=== PATIENT | female | born 1955 | race Caucasian/White ===

== ENCOUNTER 2021-01-28 10:55 | Day surgery (SDC) | payer MEDICARE, BC ==
[2021-01-24 11:00] VITALS: BMI 27.8
--- NOTE | 2021-01-26 11:18 | P.GSHP ---
History of Present Illness H&P Date: 01/26/21 65 yo female with a symptomatic 8 mm rt upj stone She wishes treatment Treatment options were discussed. She comes for eswl right - Constitutional Constitutional: Denies chills, Denies fever - EENT Eyes: denies blurred vision, denies pain Ears, nose, mouth and throat: Denies headache, Denies sore throat - Cardiovascular Cardiovascular: Denies chest pain, Denies shortness of breath - Respiratory Respiratory: Denies cough, Denies 7 - Gastrointestinal Gastrointestinal: Denies abdominal pain, Denies diarrhea, Denies nausea, Denies vomiting - Genitourinary (Female) Genitourinary: Denies dysuria, Denies hematuria - Genitourinary (Male) Genitourinary: Denies dysuria, Denies hematuria - Musculoskeletal Musculoskeletal: Denies myalgias - Integumentary Integumentary: Denies pruritus, Denies rash - Neurological Neurological: Denies numbness, Denies weakness - Psychiatric Psychiatric: Denies anxiety, Denies depression - Endocrine Endocrine: Denies fatigue, Denies weight change Past Medical History Past Medical History: Asthma, GERD/Reflux, Hypertension, Osteoarthritis (OA), Rheumatoid Arthritis (RA), Thyroid Disorder Additional Past Medical History / Comment(s): hx migraines, hiatal hernia, juvenile RA, kidney stones History of Any Multi-Drug Resistant Organisms: None Reported Past Surgical History: Cholecystectomy, Joint Replacement, Tonsillectomy Additional Past Surgical History / Comment(s): Slenectomy, left hip replacement, sinus balloon surgery, lithotripsy Past Anesthesia/Blood Transfusion Reactions: No Reported Reaction Smoking Status: Never smoker - Past Family History Mother Family Medical History: No Reported History Medications and Allergies Home Medications Medication Instructions Recorded Confirmed Type ALPRAZolam [Xanax] 0.25 mg PO DAILY PRN 01/24/21 01/24/21 History Albuterol Inhaler [Ventolin Hfa 1 puff INHALATION RT-QID PRN 01/24/21 01/24/21 History Inhaler] Beclomethasone Dip 80 Mcg/Puff 1 puff INHALATION QAM 01/24/21 01/24/21 History [Qvar 80 mcg] Benzonatate [Tessalon Perles] 100 mg PO TID PRN 01/24/21 01/24/21 History Cetirizine HCl [Zyrtec] 10 mg PO DAILY 01/24/21 01/24/21 History Cyanocobalamin (Vitamin B-12) 1,000 mcg PO DAILY 01/24/21 01/24/21 History [Vitamin B-12] Hydrochlorothiazide 12.5 mg PO DAILY 01/24/21 01/24/21 History [hydroCHLOROthiazide] Levothyroxine Sodium [Synthroid] 25 mcg PO DAILY 01/24/21 01/24/21 History Losartan [Cozaar] 50 mg PO DAILY 01/24/21 01/24/21 History Omeprazole [PriLOSEC] 20 mg PO 1200 01/24/21 01/24/21 History Oxybutynin ER [Ditropan Xl] 10 mg PO DAILY 01/24/21 01/24/21 History Slow-Magnesium 1 tab PO DAILY 01/24/21 01/24/21 History Vitamin D Drops 1 applicate PO DIRECTED 01/24/21 01/24/21 History traMADol HCl [Ultram] 100 mg PO Q6HR PRN 01/24/21 01/24/21 History Allergies Allergy/AdvReac Type Severity Reaction Status Date / Time codeine Allergy Nausea Verified 01/24/21 10:46 Sulfa (Sulfonamide Allergy Nausea Verified 01/24/21 10:46 Antibiotics) Surgical - Exam - General well developed, well nourished - Eyes PERRL - ENT no hearing loss - Neck trachea midline - Respiratory normal expansion, normal respiratory effort - Cardiovascular Rhythm: regular - Abdomen Abdomen: soft, non tender - Neurologic normal coordination, normal sensation - Musculoskeletal normal gait, normal posture - Psychiatric oriented to time, oriented to person, oriented to place, speech is normal, memory intact Results - Imaging Abdominal x-ray: report reviewed, image reviewed Assessment and Plan Assessment: Impression: right ureteral stone Plan: eswl right
[~2021-01-28 10:55] MED LIST: KETAMINE 10 MG/ML 20 ML VIAL ONE; LACTATED RINGERS 1,000 ML IV SCH; LIDOCAINE 1% INJ 10MG/ML (20 ML MDV) ONE; MIDAZOLAM 2 MG/2 ML VIAL ONE; PROPOFOL 10 MG/ML 20 ML VIAL IV ONE; fentaNYL (PF) 50 MCG/ML 2 ML AMP ONE
--- NOTE | 2021-01-28 11:15 | XR ---
EXAMINATION TYPE: XR KUB DATE OF EXAM: 01/28/2021 11:09 AM CLINICAL HISTORY: Presurgical study. Right-sided kidney stones. TECHNIQUE: Two supine KUB images of the abdomen are obtained. COMPARISON: None. FINDINGS: There are 2 adjacent 4 mm calculi right L3 transverse process level likely in proximal uret er. Some vascular calcification in the pelvis. No definitive left-sided nephrolithiasis. Cholecystectomy clips. Surgical changes of left hip. Advanced degenerative change right hip with supe rior [id number] formation. Overall nonobstructive bowel gas pattern. IMPRESSION: As above.
[2021-01-28 11:34] VITALS: RESP 16; TEMP 97.4
--- NOTE | 2021-01-28 12:22 | P.OP ---
Date of Procedure: 01/28/21 Preoperative Diagnosis: Right UPJ Calculus Postoperative Diagnosis: Same Procedure(s) Performed: Right extracorporal shockwave lithotripsy (ESWL) Anesthesia: MAC Surgeon: Lopez Eugene Estimated Blood Loss (ml): 0 IV fluids (ml): 700 Pathology: none sent Condition: stable Disposition: PACU Indications for Procedure: The patient is a 65-year-old white female with an 8 mm right UPJ calculus. She is symptomatic and comes for ESWL. Operative Findings: Excellent fragmentation. Description of Procedure: The patient was taken to the operating room and placed on the Dornier Compact Delta II lithotripter in the supine position. The calculus was seen on biplanar fluoroscopy. Lasix 10 mg was given intravenously. Once the patient was properly positioned and sedated, lithotripsy was performed. The energy level was gradually increased per protocol, to an energy level of 5. After 100 shocks were administered, a 2 minute pause was instituted per protocol. A total of 2000 shocks were given at a rate of 80 shocks per minute. Fluoroscopy was utilized at a minimum to ensure proper positioning and determine the treatment status. The procedure was terminated as the calculus was no longer visible. The patient tolerated the procedure well was taken to the recovery room in stable condition. Instructions were given to strain the urine, and the patient will follow-up within one week.
[2021-01-28 12:46] VITALS: BP 158/89; PULSE 86
== END 2021-01-28 13:00 | disposition home or self-care (01) ==
LOC: ORWHC2ENDO 10:55
PROVIDERS: ATTEND Urology
DX: N20.0 Calculus of kidney (principal); J45.909 Unspecified asthma, uncomplicated; I10 Essential (primary) hypertension; E78.5 Hyperlipidemia, unspecified; K21.9 Gastro-esophageal reflux disease without esophagitis; M19.90 Unspecified osteoarthritis, unspecified site; M06.9 Rheumatoid arthritis, unspecified; E07.9 Disorder of thyroid, unspecified; K44.9 Diaphragmatic hernia without obstruction or gangrene; Z90.49 Acquired absence of other specified parts of digestive tract; Z90.89 Acquired absence of other organs; Z96.642 Presence of left artificial hip joint; Z98.890 Other specified postprocedural states; Z79.890 Hormone replacement therapy; Z79.891 Long term (current) use of opiate analgesic; Z79.899 Other long term (current) drug therapy; Z88.5 Allergy status to narcotic agent; Z88.2 Allergy status to sulfonamides
CPT/HCPCS: 74018; 50590; J2250; J2001; J3010; J2704

== ENCOUNTER 2022-03-26 10:07 | Day surgery (SDC) | payer MEDICARE, BC, OTHER ==
[2022-03-24 15:25] VITALS: BMI 26.5
[~2022-03-26 10:07] MED LIST changes: -KETAMINE 10 MG/ML 20 ML VIAL ONE; +LIDOCAINE 1% (10MG/ML) FOR IV START INTRADERMA PRN; -LIDOCAINE 1% INJ 10MG/ML (20 ML MDV) ONE; -MIDAZOLAM 2 MG/2 ML VIAL ONE; -PROPOFOL 10 MG/ML 20 ML VIAL IV ONE; +TETRACAINE 0.5% OPHTH (PF) DROPS 4 ML BTL OP PRN; -fentaNYL (PF) 50 MCG/ML 2 ML AMP ONE
[2022-03-26 10:32] VITALS: TEMP 98.6
[2022-03-26] MEDS: CYCLOPENTOLATE 1% OPHTH SOLN 2 ML BTL OP PRN ×3 (10:38→10:50)
[2022-03-26] MEDS: PHENYLEPHRINE 2.5% OPHTH DRP 2ML OP PRN ×3 (10:41→10:53)
[2022-03-26 10:53] LABS: Glucose,Whole Blood 104 mg/dL (75-99)
[2022-03-26] MEDS: MOXIFLOXACIN HCL 0.5% DROPS 3 ML BTL OP PRN ×3 (10:56→14:14)
[2022-03-26] MEDS ORDERED: LIDOCAINE 1% (PF) 10MG/ML VIAL MISCELLANE ONE ×2 (10:57→11:31)
[2022-03-26] MEDS: TIMOLOL 0.5% OPHTH DROPS 5 ML BTL OP PRN ×3 (10:57→14:14)
[2022-03-26] MEDS ORDERED: BALANCED SALT IRRIG SOLN COMB2 15 ML IRRIG.SOLN INTRAOCULA ONE ×3 (10:57→14:14)
[2022-03-26] MEDS ORDERED: HYALURONATE SODIUM INTRAOCULAR 1 EACH SYRINGE (12MG/ML) INTRAOCULA ONE ×2 (10:57→11:31)
[2022-03-26] MEDS ORDERED: EPINEPHrine (PF) 0.3 ML in BALANCED SALT IRRIG SOLN COMB2 500 ML IRRIGATION ONE ×2 (10:58→14:13)
[2022-03-26] MEDS ORDERED: MIDAZOLAM 2 MG/2 ML VIAL ONE ×2 (11:27→13:55)
[2022-03-26] MEDS ORDERED: fentaNYL (PF) 50 MCG/ML 2 ML AMP ONE ×2 (11:27→13:55)
[2022-03-26] MEDS ORDERED: LACTATED RINGERS 1,000 ML IV ONE ×3 (11:30→14:13)
--- NOTE | 2022-03-26 12:19 | P.OP ---
Date of Procedure: 03/26/22 Preoperative Diagnosis: NS & CS Postoperative Diagnosis: same Procedure(s) Performed: PIOL< OD Implants: [id number] 24.00 Anesthesia: MAC Surgeon: Reji Bain Pathology: none sent Condition: stable Disposition: same day Indications for Procedure: blurry vision Operative Findings: IOL broken will need to replace.
[2022-03-26 12:46] VITALS: RESP 16
[2022-03-26] MEDS ORDERED: DUOVISC KIT (GREEN BOX) INTRAOCULA ONE (14:14)
[2022-03-26] MEDS ORDERED: LIDOCAINE 1% (PF) 10MG/ML VIAL INTRAARTIC ONE (14:15)
--- NOTE | 2022-03-26 14:43 | P.OP ---
Date of Procedure: 03/26/22 Preoperative Diagnosis: broken IOL Postoperative Diagnosis: same Procedure(s) Performed: IOL exchange OD Implants: [id number] 24.00 Anesthesia: MAC Surgeon: Reji Bain Pathology: none sent Condition: stable Disposition: same day Indications for Procedure: IOL damage Operative Findings: no complications
[2022-03-26 15:16] VITALS: BP 145/83; PULSE 72
--- NOTE | 2022-03-27 11:01 | OP ---
OPERATIVE REPORT DATE OF PROCEDURE: March 26, 2022. PROCEDURE: Phacoemulsification of cataract and intraocular lens implant of the right eye. PREOPERATIVE DIAGNOSIS: Nuclear sclerosis, cortical sclerosis. Regular astigmatism. POSTOPERATIVE DIAGNOSIS: Nuclear sclerosis, cortical sclerosis. Regular astigmatism. SURGEON: Dr. Reji Bain. ANESTHESIA: Topical. ESTIMATED BLOOD LOSS: None. SPECIMEN TAKEN: None. NARRATIVE: After obtaining the appropriate consent, the patient was brought to the operating room. There she was asked to sit upright and the axes of 0 and 180 degrees were identified and marked with a gentian hallie marker. She was then laid in the proper supine position under cardiac monitoring, then prepped and draped in the usual sterile manner. She was approached from her right temporal side. Using previously acquired corneal topography information, the axis of 166 degrees was identified and marked with a Allostatix axis marker. At the 11 o'clock position, an MVR blade was used to create a paracentesis port. Through this opening, 1% Xylocaine MPF 50:50 mix with balanced salt solution was injected into the anterior chamber. This was followed by stabilization of the anterior chamber with Amvisc. At the 9 o'clock position, a 2.5 mm keratome was used to create a self-sealing corneal flap incision. Through this opening, a cystotome was introduced to begin a continuous tear capsulorrhexis which was then completed using the Utrata forceps. Hydrodissection and hydrodelineation of the lens was accomplished with balanced salt solution. Phacoemulsification of the lens utilizing phaco chop was accomplished in 16.14 seconds at 18% power. Additional Xylocaine MPF was instilled into the anterior chamber. This was followed by removal of the remaining cortex under irrigation and aspiration as well as careful polishing of the posterior capsule in capsule vacuum mode. Additional Amvisc was instilled into the capsular bag and an [employer] model TFAT40, 24.0 diopter posterior chamber intraocular lens was then inserted into the capsular bag without difficulty. It was appreciated at this point in time while trying to reposition and align the lens with its proper astigmatism correction that the optic of the lens had been fractured in several places. Therefore, using a Sooqini lens removal system, the lens was divided and removed from the anterior chamber. A backup lens model TFNT40 24.0 diopter posterior chamber intraocular lens was then inserted after restabilizing the capsular bag with additional Amvisc. The lens was placed in the capsular bag without difficulty and the remaining viscoelastic was removed from in and around the intraocular lens along with careful realignment of the lens to the 166 degree axis. The eye was brought to normal intraocular pressure through the paracentesis port and due to instability of the temporal incision, ReSure was used to help secure the incision and create a watertight closure. Once this was accomplished, the patient then received 2 drops of 0.5% timolol followed by 2 drops of 0.5% moxifloxacin, was then lightly patched and shielded in the usual manner. There were no additional difficulties encountered during the procedure. She tolerated the procedure well and was returned to outpatient recovery in good condition. MMODL / IJN: [id number] /
== END 2022-03-26 15:45 | disposition home or self-care (01) ==
LOC: OR 10:07
PROVIDERS: ATTEND Ophthalmology
DX: H25.11 Age-related nuclear cataract, right eye (principal); H52.221 Regular astigmatism, right eye; I10 Essential (primary) hypertension; J45.909 Unspecified asthma, uncomplicated; F41.9 Anxiety disorder, unspecified; F32.A Depression, unspecified; M06.9 Rheumatoid arthritis, unspecified; M19.90 Unspecified osteoarthritis, unspecified site; E03.9 Hypothyroidism, unspecified; Z79.890 Hormone replacement therapy; Z79.899 Other long term (current) drug therapy; Z88.5 Allergy status to narcotic agent; Z88.2 Allergy status to sulfonamides; Z90.89 Acquired absence of other organs; Z90.49 Acquired absence of other specified parts of digestive tract; Z90.81 Acquired absence of spleen; Z98.890 Other specified postprocedural states; Z87.442 Personal history of urinary calculi
CPT/HCPCS: 66984; J2250; J0171 ×2; J3010; J2001

== ENCOUNTER 2022-06-11 09:24 | Day surgery (SDC) | payer MEDICARE, BC, OTHER ==
[2022-06-10 08:41] VITALS: BMI 26.5
[2022-06-11] MEDS: CYCLOPENTOLATE 1% OPHTH SOLN 2 ML BTL OP PRN ×3 (10:50→11:02)
[2022-06-11] MEDS: PHENYLEPHRINE 2.5% OPHTH DRP 2ML OP PRN ×3 (10:53→11:05)
[2022-06-11 10:56] VITALS: TEMP 97.5
[2022-06-11] MEDS ORDERED: MIDAZOLAM 2 MG/2 ML VIAL ONE (11:54)
[2022-06-11] MEDS ORDERED: fentaNYL (PF) 50 MCG/ML 2 ML AMP ONE (11:54)
[2022-06-11] MEDS ORDERED: LIDOCAINE 1% (PF) 10MG/ML VIAL MISCELLANE ONE ×2 (12:01→12:08)
[2022-06-11] MEDS ORDERED: HYALURONATE SODIUM INTRAOCULAR 1 EACH SYRINGE (12MG/ML) INTRAOCULA ONE ×2 (12:01→12:08)
[2022-06-11] MEDS ORDERED: BALANCED SALT IRRIG SOLN COMB2 15 ML IRRIG.SOLN INTRAOCULA ONE ×2 (12:01→12:08)
[2022-06-11] MEDS: MOXIFLOXACIN HCL 0.5% DROPS 3 ML BTL OP PRN ×2 (12:02→12:22)
[2022-06-11] MEDS: TIMOLOL 0.5% OPHTH DROPS 5 ML BTL OP PRN ×2 (12:02→12:22)
[2022-06-11] MEDS ORDERED: EPINEPHrine (PF) 0.3 ML in BALANCED SALT IRRIG SOLN COMB2 500 ML IRRIGATION ONE (12:04)
--- NOTE | 2022-06-11 12:26 | P.OP ---
Date of Procedure: 06/11/22 Preoperative Diagnosis: NS & CS & PSC Postoperative Diagnosis: same Procedure(s) Performed: PIOL, OS Implants: [id number] 23.50 Anesthesia: MAC Surgeon: Reji Bain Pathology: none sent Condition: stable Disposition: same day Indications for Procedure: Blurry vision Operative Findings: no complications
[2022-06-11 12:33] VITALS: RESP 16
[2022-06-11 12:56] VITALS: BP 136/72; PULSE 71
--- NOTE | 2022-06-12 10:30 | OP ---
OPERATIVE REPORT DATE OF SURGERY: June 11, 2022. PROCEDURE PERFORMED: Phacoemulsification of cataract and intraocular lens implant of the left eye. SURGEON: Dr. Reji Bain. PREOPERATIVE DIAGNOSES: Nuclear sclerosis. Cortical Sclerosis. Posterior subcapsular cataract. POSTOPERATIVE DIAGNOSES: Nuclear sclerosis. Cortical Sclerosis. Posterior subcapsular cataract. OPERATION: Clear cornea phacoemulsification of cataract left/OS eye. ESTIMATED BLOOD LOSS: Zero. SPECIMEN TAKEN: None. NARRATIVE: After obtaining the appropriate consent, the patient was brought to the Operating Room where the patient was placed under cardiac monitoring and prepped and draped in the usual sterile manner. At the 5 o'clock OS position a 15 degree super sharp blade was used to create a paracentesis followed by instillation of 1% Xylocaine MPF 50:50 mix with BSS into the anterior chamber. This was followed by Amvisc to stabilize the anterior chamber. At the 3 o'clock position a self-sealing corneal flap incision was created using 2.8 mm tamiko keratome. A cystotome was used to initiate a continuous tear capsulorrhexis which was completed with the Utrata forceps. A Binkhorst cannula was used to hydrodissect the lens nucleus followed by hydrodelineation. Phacoemulsification of the lens was performed utilizing phaco-chop in 8.35 seconds at 11% power. The remaining cortical material was removed using the irrigation aspiration mode followed by additional 1% Xylocaine MPF into the anterior chamber followed by viscoelastic to stabilize the capsular bag. An [employer] Merlos optics model TFNT 00 23.5 diopter posterior chamber lens was placed into the capsular bag without difficulty. The remaining viscoelastic material was removed from the anterior chamber with the irrigation/aspiration. Balanced salt solution was used to normalize the intraocular pressure. The incision was checked for watertight integrity. The patient then received two drops of 0.5% timolol followed by two drops Vigamox, was lightly patched and shielded in the usual manner. There were no complications from the procedure. The patient tolerated the procedure well and was returned to recovery in good condition. MMODL / IJN: [id number] /
== END 2022-06-11 13:13 | disposition home or self-care (01) ==
LOC: OR 09:24
PROVIDERS: ATTEND Ophthalmology
DX: H25.12 Age-related nuclear cataract, left eye (principal); H25.012 Cortical age-related cataract, left eye; I10 Essential (primary) hypertension; E78.5 Hyperlipidemia, unspecified; J45.909 Unspecified asthma, uncomplicated; R73.03 Prediabetes; E03.9 Hypothyroidism, unspecified; K21.9 Gastro-esophageal reflux disease without esophagitis; F41.9 Anxiety disorder, unspecified; F32.A Depression, unspecified; Z88.2 Allergy status to sulfonamides; Z88.5 Allergy status to narcotic agent; Z79.899 Other long term (current) drug therapy; Z79.51 Long term (current) use of inhaled steroids; Z79.890 Hormone replacement therapy; Z83.518 Family history of other specified eye disorder
CPT/HCPCS: 66984; V2632; J2250; J0171; J3010; J2001

== ENCOUNTER → 2024-11-21 | Outpatient (CLI) | payer MEDICARE, BC ==
[2024-11-21 12:00] VITALS: BP 118/72; PULSE 89; RESP 19; TEMP 97.6
--- NOTE | 2024-11-21 17:18 | P.PAINPG ---
PQRS Measure Charge Sheet Comment: HISTORY OF PRESENT ILLNESS: A 69 yr old female as a referral from Dr Augustine presents today w severe and chronic lumbosacral pain > 1 yr secondary to radiculopathy, spondylosis and facet arthropathy without myelopathy for evaluation. Pt states pain level is provoked at 6 /10 in intensity, constant, localized in the lumbosacral spine, predominantly axial, sharp in character w occasional shooting pain towards the tailbone. Pain is provoked by sitting for periods > 30 min. Pain is alleviated by chiropractic treatments semi monthly in [id number], physician guided home exercises 4-5 times weekly since Fall 2022, ice, medications, repositioning and rest . Oswestry axial pain score at 26. PMH: OA, Asthma, GERD/Reflux, Hypertension, Juvenile RA, Hypothyroidism, Nephrolithiasis, Migraines, HH PSH: ESWL/ Lithotripsy (2020), Cholecystectomy, L Hip Replacement, Tonsillectomy, Splenectomy, Sinus Balloon Surgery SH: Negative x3 FH: Mo- No Reported History All: See list Meds: See list including Advil REVIEW OF ORGAN SYSTEMS: CONSTITUTIONAL: No fevers or chills. No recent weight loss. NEUROLOGICAL: + numbness and tingling along the distal extremities. No seizure disorders or headaches. MUSCULOSKELETAL: + pain PSYCHIATRIC: Denies current depression or suicidal thoughts. Physical Examinations : Constitutional : Cooperative , not in acute distress . Neurologic : Cranial nerve II to XII intact. No focal neurological deficits. Psychiatric : alert & oriented x 3. Matching mood & appropriate affect. Judgment & insight intact. Musculoskeletal : Cervical Spine Motor strength in the deltoid and biceps: Normal right side. Normal Left side Motor strength biceps and the wrist extensors: Normal right side . Normal left side Motor strength in the triceps muscle: Normal right side. Normal left side Deep tendon reflexes: Normal at the biceps. Normal at Brachioradialis. Normal at triceps Vertebral body tenderness to deep palpation over Cervical facet loading test: positive bilaterally Spurling test: positive bilaterally Neck distraction test: positive bilaterally Aamir sign: positive bilaterally Lumbar spine Motor strength lower extremities ,thigh and legs 5/5 Right side , 5/5 Left side Deep tendon reflexes : Normal Knee Jerk. Normal Ankle Jerk Vertebral body tenderness over Sarmiento Test positive Lumbar facet Loading Test: positive Right / positive Left Range of motion of the lumbar spine Flexion 30 degrees, extension 10 degrees Straight Leg Raise test: Left/ Right positive at degrees Destinee test: positive right / positive left. Severe tenderness over the Sacroiliac joint on the Right / Left sides Gaenslen test: positive bilaterally Seated flexion test: positive bilaterally. Sacral spine : Severe tenderness over the Sacroiliac joint: right side / left side Range of motion: Flexion of the lumbar spine <60 degrees Range of motion: Extension of the lumbar spine <20 degrees Gaenslen's Test positive BL Destinee test: positive right side / left side Thigh Thrust Test Sacral Thrust Test Assessment/ Plan : BL Sacroiliitis Recommendation of PT x 6 wks M46.1. All questions answered. I have spent greater than 30 minutes on patient care today. Dr Sampson was available by phone for the evaluation of this patient. The time was used to review the medical records including relevant urine studies and Prescription history (MAPs), review of the available imaging, evaluation and examination of the patient, coordination of care with the medical staff and if applicable referring physicians, as well as creation of the medical record Home Medications: Ambulatory Orders ALPRAZolam [Xanax] 0.25 mg PO DAILY PRN 01/24/21 Albuterol Inhaler [Ventolin Hfa Inhaler] 1 puff INHALATION RT-QID PRN 01/24/21 Beclomethasone Dip 80 Mcg/Puff [Qvar 80 mcg] 1 puff INHALATION QAM 01/24/21 Benzonatate [Tessalon Perles] 100 mg PO TID PRN 01/24/21 Cetirizine HCl [Zyrtec] 10 mg PO DAILY 01/24/21 Levothyroxine Sodium [Synthroid] 25 mcg PO DAILY 01/24/21 Omeprazole [PriLOSEC] 20 mg PO 1200 01/24/21 Oxybutynin ER [Ditropan XL] 10 mg PO DAILY 01/24/21 hydroCHLOROthiazide 12.5 mg PO DAILY 01/24/21 traMADol HCl [Ultram] 100 mg PO Q6HR PRN 01/24/21 Losartan Potassium [Cozaar] 50 mg PO DAILY 03/24/22 Biotin 10,000 mcg PO DAILY 03/26/22 Fluticasone Propionate [Flonase Allergy Relief] 1 spray NASAL DAILY 03/26/22 Ibuprofen [Advil] 400 mg PO Q8HR PRN 06/10/22 Magnesium Chloride [Slow-Mag] 64 mg PO DAILY 06/10/22 guaiFENesin SYRUP 100MG/5ML [Robitussin] 10 ml PO DAILY PRN 06/10/22 Controlled Substance Measures - Controlled Substance Measures Is patient prescribed a controlled substance at discharge?: No
== END ==
LOC: PNWHC3 10:34
PROVIDERS: ATTEND Specialist
DX: M46.1 Sacroiliitis, not elsewhere classified (principal); G89.29 Other chronic pain; Z88.2 Allergy status to sulfonamides; Z88.5 Allergy status to narcotic agent
CPT/HCPCS: 99202

== ENCOUNTER → 2025-03-02 | Outpatient (CLI) | payer MEDICARE, BC ==
[2025-03-02 11:33] VITALS: BP 178/84; PULSE 76; RESP 16
--- NOTE | 2025-03-02 15:15 | P.PAINPG ---
PQRS Measure Charge Sheet Comment: HISTORY OF PRESENT ILLNESS: A 69 yr old female presents today w severe and chronic lumbosacral pain > 1 yr secondary to radiculopathy, spondylosis and facet arthropathy without myelopathy for evaluation. Pt states pain level is provoked at 2 - 8 /10 in intensity, constant, localized in the lumbosacral spine, predominantly axial, sharp in character w occasional shooting pain towards the hips and LEs. Pain is provoked by sitting for periods > 30 min. Pain is alleviated by PT x 6 wks which ended in Feb 2025, -chiropractic treatments semi monthly in [id number], physician guided home exercises daily since Feb 2025, ice, medications, repositioning and rest . Interventional procedures include Medications include Advil REVIEW OF ORGAN SYSTEMS: CONSTITUTIONAL: No fevers or chills. No recent weight loss. NEUROLOGICAL: + numbness and tingling along the distal extremities. No seizure disorders or headaches. MUSCULOSKELETAL: + pain PSYCHIATRIC: Denies current depression or suicidal thoughts. Physical Examinations : Constitutional : Cooperative , not in acute distress . Neurologic : Cranial nerve II to XII intact. No focal neurological deficits. Psychiatric : alert & oriented x 3. Matching mood & appropriate affect. Judgment & insight intact. Musculoskeletal : Cervical Spine Motor strength in the deltoid and nina ps: Normal right side. Normal Left side Motor strength biceps and the wrist extensors: Normal right side . Normal left side Motor strength in the triceps muscle: Normal right side. Normal left side Deep tendon reflexes: Normal at the biceps. Normal at Brachioradialis. Normal at triceps Vertebral body tenderness to deep palpation over Cervical facet loading test: positive bilaterally Spurling test: positive bilaterally Neck distraction test: positive bilaterally Aamir sign: positive bilaterally Lumbar spine Motor strength lower extremities ,thigh and legs 5/5 Right side , 5/5 Left side Deep tendon reflexes : Normal Knee Jerk. Normal Ankle Jerk Vertebral body tenderness over Sarmiento Test positive Lumbar facet Loading Test: positive Right / positive Left Range of motion of the lumbar spine Flexion 30 degrees, extension 10 degrees Straight Leg Raise test: Left/ Right positive at degrees Destinee test: positive right / positive left. Severe tenderness over the Sacroiliac joint on the Right / Left sides Gaenslen test: positive bilaterally Seated flexion test: positive bilaterally. Sacral spine : Severe tenderness over the Sacroiliac joint: right side / left side Range of motion: Flexion of the lumbar spine <60 degrees Range of motion: Extension of the lumbar spine <20 degrees Gaenslen's Test positive BL Destinee test: positive right side / left side Thigh Thrust Test BL positive Sacral Thrust Test Assessment/ Plan : BL Sacroiliitis Recommendation of BL SI injection. Risks, benefits of procedure discussed and patient verbalized understanding. All questions answered. I have spent greater than 30 minutes on patient care today. Dr Sampson was available by phone for the evaluation of this patient. The time was used to review the medical records including relevant urine studies and Prescription history (MAPs), review of the available imaging, evaluation and examination of the patient, coordination of care with the medical staff and if applicable referring physicians, as well as creation of the medical record PQRS Narrative: Narcotic Agreement Date Signed 11/21/24 Hx Alcohol Use (MH) No Home Medications: Ambulatory Orders ALPRAZolam [Xanax] 0.25 mg PO DAILY PRN 01/24/21 Albuterol Inhaler [Ventolin Hfa Inhaler] 1 puff INHALATION RT-QID PRN 01/24/21 Beclomethasone Dip 80 Mcg/Puff [Qvar 80 mcg] 1 puff INHALATION QAM 01/24/21 Benzonatate [Tessalon Perles] 100 mg PO TID PRN 01/24/21 Cetirizine HCl [Zyrtec] 10 mg PO DAILY 01/24/21 Levothyroxine Sodium [Synthroid] 25 mcg PO DAILY 01/24/21 Omeprazole [PriLOSEC] 20 mg PO 1200 01/24/21 Oxybutynin ER [Ditropan XL] 10 mg PO DAILY 01/24/21 hydroCHLOROthiazide 12.5 mg PO DAILY 01/24/21 traMADol HCl [Ultram] 100 mg PO Q6HR PRN 01/24/21 Losartan Potassium [Cozaar] 50 mg PO DAILY 03/24/22 Biotin 10,000 mcg PO DAILY 03/26/22 Fluticasone Propionate [Flonase Allergy Relief] 1 spray NASAL DAILY 03/26/22 Ibuprofen [Advil] 400 mg PO Q8HR PRN 06/10/22 Magnesium Chloride [Slow-Mag] 64 mg PO DAILY 06/10/22 guaiFENesin SYRUP 100MG/5ML [Robitussin] 10 ml PO DAILY PRN 06/10/22 Controlled Substance Measures - Controlled Substance Measures Is patient prescribed a controlled substance at discharge?: No
== END ==
LOC: PNWHC3 09:26
PROVIDERS: ATTEND Anesthesiology
DX: M46.1 Sacroiliitis, not elsewhere classified (principal); Z88.5 Allergy status to narcotic agent; Z88.2 Allergy status to sulfonamides
CPT/HCPCS: 99211

== ENCOUNTER 2025-03-30 09:30 | Day surgery (SDC) | payer MEDICARE, BC ==
[2025-03-27 14:38] VITALS: BMI 28.1
[~2025-03-30 09:30] MED LIST changes: -LIDOCAINE 1% (10MG/ML) FOR IV START INTRADERMA PRN; -TETRACAINE 0.5% OPHTH (PF) DROPS 4 ML BTL OP PRN
[2025-03-30 09:56] VITALS: TEMP 98.4
[2025-03-30 10:31] LABS: Glucose,Whole Blood 95 mg/dL (70-110)
[2025-03-30] MEDS ORDERED: IOPAMIDOL M200 10 ML VIAL ONE (10:35)
[2025-03-30] MEDS ORDERED: ROPIVACAINE 5 MG/ML 30 ML VIAL ONE (10:35)
[2025-03-30] MEDS ORDERED: methylPREDNISolone ACETATE 40 MG/ML 1 ML VIAL ONE (10:35)
--- NOTE | 2025-03-30 10:45 | P.PCN ---
Date of Procedure: 03/30/25 Procedure(s) Performed: Procedure= bilateral sacroiliac joints steroid injection under fluoroscopy guidance (fluoroscopy image stored on file in the radiology Department ) Preoperative diagnosis= 1-sacroiliitis Postoperative diagnosis=Same as preop Diagnosis . Complication = none Condition= stable Anesthesia= local anesthesia with ropivacaine 0.5% 4 ml only Indication for the procedure= patient complaining of low back pain , examination was positive for severe tenderness over the sacroiliac joints bilaterally and patient diagnosed with sacroiliitis, for this reason she was good candidate for sacroiliac joint steroid injection. Description of the procedure= procedure risk and benefits discussed with the patient, including but not limited, risk of infection and bleeding, and ALLERGIC reaction to the medication and not complete pain relief and patient agreed with the preceding patient taken to the operating room, placed in prone position or standard monitors applied to the patient then after induction of anesthesia back prepped with chlorhexidine 3 times , Then under strict sterile technique, first I did the right sacroiliac joint the which was identified under fluoroscopy guidance been local infiltration of the skin and subcu interstitial with lidocaine 1% then 22-gauge Quincke Needle advanced slowly under fluoroscopy and placed in the right sacroiliac joint needle placement confirmed with AP and oblique and lateral view, then after that Isovue 200 one mL injected which confirmed the correct needle placement with the appropriate arthrogram of the sacroiliac joint, and after appropriate needle placement confirmed and after negative aspiration, or heme , then Ropivacaine 0.5% 2 mL, and 20 mg of Depo-Medrol mixed together and injected in the right sacroiliac joint after negative aspiration patient tolerated the procedure well without any complication. Then the left sacroiliac joint steroid injection done under strict sterile technique local infiltration of the skin and subcu interstitial at the location of the left sacroiliac joint then a 22-gauge Quincke Needle advanced slowly under fluoroscopy time placed in the left sacroiliac joint, needle placement confirmed with AP and oblique and lateral view then after appropriate needle placement confirmed, with the AP and oblique and lateral then after negative aspiration Isovue 200 1 mL injected showed arthropathy of the left sacroiliac joint, and after negative aspiration 0.5% Ropivacaine 2 mL and 20 mg of Depo- Medrol injected in the left sacroiliac joint after negative aspiration patient tolerated the procedure well that any complications and she will follow up in clinic 3 weeks
[2025-03-30 10:55] VITALS: RESP 16
[2025-03-30 11:05] VITALS: BP 156/77; PULSE 87
--- NOTE | 2025-03-30 11:05 | FL ---
EXAMINATION TYPE: FL guided pain mgmt statistic DATE OF EXAM: 03/30/2025 10:49 AM COMPARISON: Pre Operative Images if available both CT/MRI or plain film CLINICAL INDICATION: Female, 69 years old with history of SI JOINT INJECTION; TECHNIQUE: FL guided pain mgmt statistic, multiple fluoroscopic images provided for procedure. DAP: 0.52346 mGym2 Gycm2 uGym2 cGycm2 or equivalent. FINDINGS: Fluoroscopic images during injection for pain management demonstrate degeneration changes. No evidenc e for fracture. No acute process identified. IMPRESSION: 1. No evidence for intraoperative complication. 2. Please see the operative/procedural note for further details. [facility], , 03/30/2025 11:02 AM
== END 2025-03-30 11:12 | disposition home or self-care (01) ==
LOC: ORPAIN 09:30
PROVIDERS: ATTEND Specialist
DX: M46.1 Sacroiliitis, not elsewhere classified (principal)
CPT/HCPCS: J2795; Q9966; J1010; G0260

== ENCOUNTER → 2025-04-24 | Outpatient (CLI) | payer MEDICARE, BC ==
[2025-04-24 10:23] VITALS: BP 170/79; PULSE 86; RESP 16; TEMP 97.1
--- NOTE | 2025-04-26 07:31 | P.PAINPG ---
PQRS Measure Charge Sheet Comment: HISTORY OF PRESENT ILLNESS: A 69 yr old female presents today w severe and chronic lumbosacral pain > 1 yr secondary to radiculopathy, spondylosis and facet arthropathy without myelopathy for evaluation s/p BL SI #1. Pt states she experienced 50 % pain relief x 3 wks s/p procedure. Pt states pain level is provoked at 9 /10 in intensity, constant, localized in the lumbar spine, predominantly axial, sharp in character w occasional shooting pain towards the LEs. Pain is provoked by sitting/ walking for periods > 30 min. Pain is alleviated by PT x 6 wks which ended in Nov 2024, chiropractic treatments monthly since [id number] which she is currently in, acupuncture treatments semi monthly which ended in Feb 2025, physician guided home exercises daily since Feb 2025, ice, medications, repositioning and rest . Oswestry axial pain score of 27. Interventional procedures include BL SI x1 (04/09) Medications include Advil REVIEW OF ORGAN SYSTEMS: CONSTITUTIONAL: No fevers or chills. No recent weight loss. NEUROLOGICAL: + numbness and tingling along the distal extremities. No seizure disorders or headaches. MUSCULOSKELETAL: + pain PSYCHIATRIC: Denies current depression or suicidal thoughts. Physical Examinations : Constitutional : Cooperative , not in acute distress . Neurologic : Cranial nerve II to XII intact. No focal neurological deficits. Psychiatric : alert & oriented x 3. Matching mood & appropriate affect. Judgment & insight intact. Musculoskeletal : Cervical Spine Motor strength in the deltoid and bic eps: Normal right side. Normal Left side Motor strength biceps and the wrist extensors: Normal right side . Normal left side Motor strength in the triceps muscle: Normal right side. Normal left side Deep tendon reflexes: Normal at the biceps. Normal at Brachioradialis. Normal at triceps Vertebral body tenderness to deep palpation over Cervical facet loading test: positive bilaterally Spurling test: positive bilaterally Neck distraction test: positive bilaterally Aamir sign: positive bilaterally Lumbar spine Motor strength lower extremities ,thigh and legs 5/5 Right side , 5/5 Left side Deep tendon reflexes : Normal Knee Jerk. Normal Ankle Jerk Vertebral body tenderness over Sarmiento Test positive Lumbar facet Loading Test: positive Right / positive Left Range of motion of the lumbar spine Flexion 30 degrees, extension 10 degrees Straight Leg Raise test: Left/ Right positive at degrees Destinee test: positive right / positive left. Severe tenderness over the Sacroiliac joint on the Right / Left sides Gaenslen test: positive bilaterally Seated flexion test: positive bilaterally. Sacral spine : Severe tenderness over the Sacroiliac joint: right side / left side Range of motion: Flexion of the lumbar spine <60 degrees Range of motion: Extension of the lumbar spine <20 degrees Gaenslen's Test positive BL Destinee test: positive right side / left side Thigh Thrust Test BL positive Sacral Thrust Test Assessment/ Plan : BL Sacroiliitis Recommendation of lumbar x ray M54.16. All questions answered. I have spent greater than 30 minutes on patient care today. Dr Sampson was available by phone for the evaluation of this patient. The time was used to review the medical records including relevant urine studies and Prescription history (MAPs), review of the available imaging, evaluation and examination of the patient, coordination of care with the medical staff and if applicable referring physicians, as well as creation of the medical record PQRS Narrative: Narcotic Agreement Date Signed 11/21/24 Hx Alcohol Use (MH) No Home Medications: Ambulatory Orders ALPRAZolam [Xanax] 0.25 mg PO DAILY PRN 01/24/21 Albuterol Inhaler [Ventolin Hfa Inhaler] 1 puff INHALATION RT-QID PRN 01/24/21 Beclomethasone Dip 80 Mcg/Puff [Qvar 80 mcg] 1 puff INHALATION QAM 01/24/21 Cetirizine HCl [Zyrtec] 10 mg PO DAILY 01/24/21 Levothyroxine Sodium [Synthroid] 25 mcg PO DAILY 01/24/21 Omeprazole [PriLOSEC] 20 mg PO 1200 01/24/21 Oxybutynin ER [Ditropan XL] 10 mg PO DAILY 01/24/21 hydroCHLOROthiazide 12.5 mg PO DAILY 01/24/21 Losartan Potassium [Cozaar] 50 mg PO DAILY 03/24/22 Ibuprofen [Advil] 400 mg PO Q8HR PRN 06/10/22 Azelastine/Fluticasone [Azelastin-Flutic 137-50Mcg Spr] 1 spray EA NOSTRIL DAILY 03/27/25 Fluticasone Nasal [place] [Flonase Nasal [place]] 2 spray EA NOSTRIL DAILY 04/24/25 Controlled Substance Measures - Controlled Substance Measures Is patient prescribed a controlled substance at discharge?: No
== END ==
LOC: PNWHC3 09:35
PROVIDERS: ATTEND Specialist
DX: M46.1 Sacroiliitis, not elsewhere classified (principal); Z88.5 Allergy status to narcotic agent; Z88.2 Allergy status to sulfonamides
CPT/HCPCS: 99211

== ENCOUNTER → 2025-04-27 | Outpatient (CLI) | payer MEDICARE, BC ==
--- NOTE | 2025-04-27 14:16 | XR ---
EXAMINATION TYPE: XR lumbar spine 2 or 3V DATE OF EXAM: 04/27/2025 1:43 PM COMPARISON: None. CLINICAL INDICATION: Female, 69 years old with history of M54.16 RADICULOPATHY, LUMBAR REGION, pain TECHNIQUE: 3 view(s) obtained. FINDINGS: There are 5 lumbar-type vertebral bodies. Pedicles are intact. Spondylosis with bridging osteophytes are present L2-3. Degenerative disc changes present throughout the lumbar spine. IMPRESSION: 1. Spondylosis with bridging osteophytes. 2. Degenerative disc change [facility], , 04/27/2025 2:14 PM
== END | disposition home or self-care (01) ==
LOC: RADXRMAIN 13:30
PROVIDERS: ATTEND Physician Assistant Medical
DX: M51.16 Intervertebral disc disorders with radiculopathy, lumbar region (principal); M47.26 Other spondylosis with radiculopathy, lumbar region
CPT/HCPCS: 72100

== ENCOUNTER → 2025-05-08 | Outpatient (CLI) | payer MEDICARE, BC ==
--- NOTE | 2025-05-08 13:57 | MR ---
EXAMINATION TYPE: MR lumbar spine wo con DATE OF EXAM: 05/08/2025 1:21 PM COMPARISON: None. CLINICAL INDICATION: Female, 69 years old with history of M54.16 RADICULOPATHY, LUMBAR REGION, Low ba ck pain into tailbone area and into both legs TECHNIQUE: Multiplanar, multisequence images of the lumbar spine were acquired without IV contrast. FINDINGS: Correlation radiographs 04/27/2025 There is a transitional lumbosacral segment with a right L5 assimilation joint. Mild to moderate degenerative disc disease mid and lower lumbar spine with a desiccated and bulging d iscs. Ligamentum flavum thickening and moderate hypertrophic facet arthropathy mid to lower lumbar spine. Fatty matrix hemangioma L3 vertebral body. In addition, there is some edematous Modic type I endplate change towards the left at L4-L5. Conus medullaris is normal. No suspicious bone marrow replacement. Vertebral body heights are preserv ed. Degenerative trace grade 1 anterolisthesis L3-L4. Combination of diffuse disc bulge and thickened ligamentum flavum contributes to focal severe spinal canal stenosis at L3-L4 and at L4-L5. Moderate overall canal narrowing at L2-L3. On the left, changes result in mild neural foraminal stenoses L2-L3, L3-L4, L4-L5, greatest at L4-L5. On the right, change results in moderate neural foraminal stenosis at L3-L4 and mild at L4-L5. There appears to be a prominent extrarenal pelvis on the right and parapelvic cysts left kidney measu ring up to 1.7 cm. IMPRESSION: 1. A transitional lumbosacral segment with right L5 hemisacralization. 2. Mild to moderate degenerative disc disease and moderate hypertrophic facet arthropathy. Degenerati ve trace grade 1 anterolisthesis L3-L4. Marked ligamentum flavum thickening mid to lower lumbar spine . 3. Changes result in overall focal severe spinal canal stenosis at L3-L4 and L4-L5. Moderate at L2-L3 . 4. Variable mild to moderate neuroforaminal stenoses as outlined above. [facility], , 05/08/2025 1:55 PM
== END | disposition home or self-care (01) ==
LOC: RADMRIMAIN 12:05
PROVIDERS: ATTEND Specialist
DX: M51.16 Intervertebral disc disorders with radiculopathy, lumbar region (principal); M47.26 Other spondylosis with radiculopathy, lumbar region; M48.061 Spinal stenosis, lumbar region without neurogenic claudication
CPT/HCPCS: 72148

== ENCOUNTER → 2025-05-31 | Outpatient (CLI) | payer MEDICARE, BC ==
[2025-05-31 10:11] VITALS: BP 110/69; PULSE 73; RESP 17; TEMP 97.9
--- NOTE | 2025-06-05 16:17 | P.PAINPG ---
Objective - Vital Signs Vital signs: Vital Signs Temp 97.9 F 05/31/25 10:07 Pulse 73 05/31/25 10:07 Resp 17 05/31/25 10:07 BP 110/69 05/31/25 10:07 Pulse Ox 97 05/31/25 10:07 FiO2 Intake & Output 05/30/25 05/31/25 05/31/25 18:59 06:59 18:59 Weight 90.265 kg PQRS Measure Charge Sheet Mode of Arrival: Ambulatory Comment: HISTORY OF PRESENT ILLNESS: A 69 yr old female presents today w severe and chronic lumbosacral pain > 1 yr secondary to radiculopathy, spondylosis and facet arthropathy without myelopathy for evaluation. Pt states pain level is provoked at 9 /10 in intensity, constant, localized in the lumbar spine, predominantly axial, sharp in character w occasional shooting pain towards the LEs. Pain is provoked by sitting/ walking for periods > 30 min. Pain is alleviated by PT x 6 wks which ended in Nov 2024, chiropractic treatments monthly since [id number] which she is currently in, acupuncture treatments semi monthly which ended in Feb 2025, physician guided home exercises daily since Feb 2025, ice, medications, use of a cane for ambulatory assistance, repositioning and rest . Oswestry axial pain score of 27. Interventional procedures include BL SI x1 (04/09) Medications include Advil REVIEW OF ORGAN SYSTEMS: CONSTITUTIONAL: No fevers or chills. No recent weight loss. NEUROLOGICAL: + numbness and tingling along the distal extremities. No seizure disorders or headaches. MUSCULOSKELETAL: + pain PSYCHIATRIC: Denies current depression or suicidal thoughts. Physical Examinations : Constitutional : Cooperative , not in acute distress . Neurologic : Cranial nerve II to XII intact. No focal neurological deficits. Psychiatric : alert & oriented x 3. Matching mood & appropriate affect. Judgment & insight intact. Musculoskeletal : Cervical Spine Motor strength in the deltoid and biceps: Normal right side. Normal Left side Motor strength biceps and the wrist extensors: Normal right side . Normal left side Motor strength in the triceps muscle: Normal right side. Normal left side Deep tendon reflexes: Normal at the biceps. Normal at Brachioradialis. Normal at triceps Vertebral body tenderness to deep palpation over Cervical facet loading test: positive bilaterally Spurling test: positive bilaterally Neck distraction test: positive bilaterally Aamir sign: positive bilaterally Lumbar spine Motor strength lower extremities ,thigh and legs 5/5 Right side , 5/5 Left side Deep tendon reflexes : Normal Knee Jerk. Normal Ankle Jerk Vertebral body tenderness over L5 Sarmiento Test positive Lumbar facet Loading Test: positive Right / positive Left Range of motion of the lumbar spine Flexion 30 degrees, extension 10 degrees Straight Leg Raise test: Left/ Right positive at < 35 degrees Destinee test: positive right / positive left. Severe tenderness over the Sacroiliac joint on the Right / Left sides Gaenslen test: positive bilaterally Seated flexion test: positive bilaterally. Sacral spine : Severe tenderness over the Sacroiliac joint: right side / left side Range of motion: Flexion of the lumbar spine <60 degrees Range of motion: Extension of the lumbar spine <20 degrees Gaenslen's Test positive BL Destinee test: positive right side / left side Thigh Thrust Test BL positive Sacral Thrust Test Imaging: MRI non contrast lumbar spine from 05/08/25 reviewed Assessment/ Plan : BL Sacroiliitis, L3-L4 anterolisthesis, L3-L5 severe spinal stenosis Recommendation of R TFESI L5-S1 #1. Risks, benefits of procedure discussed and patient verbalized understanding. Protocol for discontinuation/continuation of medication surrounding procedure discussed. Contact information for Dr Olguin provided. All questions answered. I have spent greater than 30 minutes on patient care today. Dr Sampson was available by phone for the evaluation of this patient. The time was used to review the medical records including relevant urine studies and Prescription history (MAPs), review of the available imaging, evaluation and examination of the patient, coordination of care with the medical staff and if applicable referring physicians, as well as creation of the medical record PQRS Narrative: Narcotic Agreement Date Signed 11/21/24 Blood Pressure 110/69 Pain Intensity [Lower Back] 4 Scale Used Numeric (1 - 10) Hx Alcohol Use (MH) No Home Medications: Ambulatory Orders ALPRAZolam [Xanax] 0.25 mg PO DAILY PRN 01/24/21 Albuterol Inhaler [Ventolin Hfa Inhaler] 1 puff INHALATION RT-QID PRN 01/24/21 Beclomethasone Dip 80 Mcg/Puff [Qvar 80 mcg] 1 puff INHALATION QAM 01/24/21 Cetirizine HCl [Zyrtec] 10 mg PO DAILY 01/24/21 Levothyroxine Sodium [Synthroid] 25 mcg PO DAILY 01/24/21 Omeprazole [PriLOSEC] 20 mg PO 1200 01/24/21 Oxybutynin ER [Ditropan XL] 10 mg PO DAILY 01/24/21 hydroCHLOROthiazide 12.5 mg PO DAILY 01/24/21 Losartan Potassium [Cozaar] 50 mg PO DAILY 03/24/22 Ibuprofen [Advil] 400 mg PO Q8HR PRN 06/10/22 Azelastine/Fluticasone [Azelastin-Flutic 137-50Mcg Spr] 1 spray EA NOSTRIL DAILY 03/27/25 Fluticasone Nasal [place] [Flonase Nasal [place]] 2 spray EA NOSTRIL DAILY 04/24/25 diazePAM [Valium] 10 mg PO DAILY 1 Days #1 tab 05/31/25 Controlled Substance Measures - Controlled Substance Measures Is patient prescribed a controlled substance at discharge?: Yes When asked, does pt state using other controlled substances?: No If prescribed controlled substance>3 days was MAPS reviewed?: Prescribed <3 Days
== END ==
LOC: PNWHC3 09:54
PROVIDERS: ATTEND Specialist
DX: M47.816 Spondylosis without myelopathy or radiculopathy, lumbar region
CPT/HCPCS: 99211